=== PATIENT | female | born 1950 | race Caucasian/White ===

== ENCOUNTER 2020-03-13 15:15 | Outpatient (CLI) | payer BC ==
[~2020-03-13] VITALS: Ht 167.6 cm; Wt 77.6 kg
[2020-03-13] MEDS ORDERED: albuterol 2.5 MG/3 ML nebule NEB ONE (16:10)
== END 2020-03-13 23:59 | disposition home or self-care (01) ==
LOC: RT 15:15
PROVIDERS: ATTEND Internal Medicine Pulmonary Disease
DX: R94.2 Abnormal results of pulmonary function studies (principal); J45.909 Unspecified asthma, uncomplicated
CPT/HCPCS: 94060; 94727; 94729; 94760

== ENCOUNTER 2025-05-27 00:19 | Emergency (ER) | payer BC, MEDICARE ==
[~2025-05-27] VITALS: Ht 167.6 cm; Wt 76.4 kg
[2025-05-27 00:24] VITALS: BP 164/98; PULSE 100; RESP 18; TEMP 98; O2SAT 94
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
== END 2025-05-27 00:57 ==
LOC: ER 00:20
DX: Z02.89 Encounter for other administrative examinations (principal); F10.129 Alcohol abuse with intoxication, unspecified; Z90.710 Acquired absence of both cervix and uterus; Z88.5 Allergy status to narcotic agent; Z72.89 Other problems related to lifestyle; Y90.9 Presence of alcohol in blood, level not specified; V89.2XXA Person injured in unspecified motor-vehicle accident, traffic, initial encounter; Y93.89 Activity, other specified; Y92.89 Other specified places as the place of occurrence of the external cause; Y99.8 Other external cause status
CPT/HCPCS: 99283